=== PATIENT | male | born 1930 | race Caucasian/White ===

== ENCOUNTER 2017-01-29 19:57 | Emergency (ER) | payer MEDICARE, OTHER ==
--- NOTE | 2017-01-30 19:35 | ER ---
ADMIT: 01/29/2017 RM/LOC: ER [facility] MR#: [id number] ACC#: [id number] [address] [id number] BRENDEN TEJADA [address] [place] [id number] Emergency Room Report SEX: M AGE: 86 : 1930 DATE: 01/29/2017 ADDENDUM: Please see my T-sheet for complete review of systems, past medical history, and physical exam. CHIEF COMPLAINT: Urinary retention. HISTORY OF PRESENT ILLNESS: This is a pleasant 86-year-old male, who presents with chief complaint of unable to urinate. He states his last urination was sometime this morning after 2:00 a.m. He does have a past medical history for prostate cancer, currently being treated with oral chemotherapy agents. He did call Dr. Youngblood's office prior to arrival. He told them to come here for further evaluation and management. reports that he did have some bloody urine prior to arrival. Denies any fevers, chills, pain with urination. No pain in the testicles. No nausea, vomiting, CVA tenderness. PAST MEDICAL HISTORY: For diabetes, hypertension, CVA. No new medications, procedures, or other offending agents to explain his retention. COURSE IN THE EMERGENCY ROOM: GENERAL: The patient was seen and examined. Afebrile and nontoxic. No acute distress. ABDOMEN: Soft. He does have some suprapubic tenderness. No McBurney's point tenderness. GENITOURINARY: Genitals, normal inspection, no discharge. No testicular tenderness. CHEST: Clear to auscultation. LUNGS: No wheezes, rhonchi, or rales. HEART: Regular rate and rhythm. EXTREMITIES: Nontender. No CVA tenderness. SKIN: Warm and dry. I did have them bladder scan him, showed 61 mL in his bladder. Had them pass Grider catheter which passed easily. Did get a cath urine specimen, significant for 3+ leukocyte esterase, 395 white blood cells per high-power field and 2738 rbc's per high power field. I did phone Dr. Youngblood, made recommendation to discontinue Grider catheter and start on antibiotics to ADMIT: 01/29/2017 RM/LOC: [facility] MR#: [id number] [address] [id number] BRENDEN TEJADA [address] [place] [address] Emergency Room Report SEX: M AGE: 86 : 1930 follow up in 7-10 days. He was given his first dose of Bactrim DS one tab p.o. as well as Pyridium 200 mg p.o. prior to discharge. He was cautioned that the Pyridium can cause his urine to turn orange. DISPOSITION: The patient was discharged with Bactrim DS one tab p.o. b.i.d. for 7 days as well as Pyridium 200 mg one tab p.o. t.i.d. for 2 days. He is to call Dr. Youngblood's office, make appointment for 7-10 days. Encouraged to continue to push fluids. Continue all his home medications. Return with worsening signs or symptoms. Questions sought and answered to the best of my ability and to the patient's satisfaction. Discharged in stable condition. TIMBO Morris / Leroy Machado MD / paull JOB #: [id number] CC: Leroy Machado MD, Attending Physician Festus Lizarraga MD, Family Physician Greg Youngblood MD
== END 2017-01-29 22:20 | disposition home or self-care (01) ==
LOC: ER 19:57
DX: N30.91 Cystitis, unspecified with hematuria (principal); C61 Malignant neoplasm of prostate; E11.9 Type 2 diabetes mellitus without complications; I10 Essential (primary) hypertension; Z86.73 Personal history of transient ischemic attack (TIA), and cerebral infarction without residual deficits; Z79.84 Long term (current) use of oral hypoglycemic drugs; Z79.899 Other long term (current) drug therapy